=== PATIENT | female | born 1985 | race African-American/Black ===

== ENCOUNTER 2019-01-18 18:48 | Emergency (ER) | payer MEDICAID ==
[~2019-01-18] VITALS: Ht 154.9 cm; Wt 78.9 kg
[2019-01-18] MEDS ORDERED: cloNIDine HCL 0.1 MG TAB PO ONE (19:15)
[2019-01-18] MEDS ORDERED: LABETALOL HCL 200 MG TAB PO ONE (20:45)
[2019-01-18] MEDS ORDERED: LORazepam 0.5 MG TAB PO ONE (22:15)
[2019-01-18] MEDS ORDERED: hydrALAZINE HCL 20 MG/ML VL IV ONE (23:30)
[2019-01-18 23:49] LABS: Basophils # (auto) 0 uL; Eosinophils # (auto) 0.1 uL; Eosinophils % (auto) 0.9 % (0.0-7.0); Hemoglobin 14.4 g/dL (12.2-16.2); Monocytes # (auto) 0.4 uL; Red Cell Distribution Width 14.7 % (11.8-14.3)
[2019-01-18 23:50] LABS: Basophils % (auto) 0.5 % (0.0-2.0); Hematocrit 43.1 % (36.0-46.0); Lymphocytes # (auto) 1.5 uL; Lymphocytes % (auto) 17.6 % (10.0-50.0); Mean Corpuscular Hemoglobin 26.9 pg (28.0-32.0); Mean Corpuscular Hgb Conc. 33.4 g/dL (32.0-36.0); Mean Corpuscular Volume 80.4 fL (80.0-100.0); Neutrophils # (auto) 6.5 uL; Platelet Count (auto) 202 10^3/uL (140-450); Red Blood Cells 5.36 10^6/uL (4.0-5.20); White Blood Cell 8.5 10^3/uL (4.4-10.8)
[2019-01-19 00:05] LABS: Albumin 3.6 g/dL (3.4-5.0); Calcium 8.8 mg/dL (8.5-10.1)
[2019-01-19 00:07] LABS: BUN/Creatinine Ratio 16.2
[2019-01-19 00:10] LABS: Bilirubin, Total 0.6 mg/dL (0.2-1.0)
[2019-01-19] MEDS ORDERED: POTASSIUM CHL 20 Meq TABLET PO ONE (00:45)
[2019-01-19 00:48] VITALS: BP 144/99
== END 2019-01-19 02:06 | disposition home or self-care (01) ==
LOC: ER 18:48
DX: I16.0 Hypertensive urgency (principal); I10 Essential (primary) hypertension; R51 Headache; J45.909 Unspecified asthma, uncomplicated; F41.9 Anxiety disorder, unspecified
CPT/HCPCS: 36415; 80053; 84702; 85025; 96374; 99284; J0360